=== PATIENT | female | born 1940 | race Caucasian/White ===

== ENCOUNTER 2018-07-01 10:29 | Outpatient (CLI) | payer MEDICARE, BC ==
--- NOTE | 2018-07-01 14:12 | MRI ---
MRI LUMBAR SPINE WITHOUT CONTRAST: Date: 07/01/18 INDICATION: Low back pain and instability. FINDINGS: There is slight dextroscoliosis of the lumbar spine. Visualized retroperitoneum and paravertebral soft tissues are unremarkable appearing. Conus is seen t o terminate at approximately the L2 level. There is partial lumbarization of S1. There is slight Grade I anterolisthesis of L5 on S1 with mild retrolisthesis of L1 on L2. At S1-S2, there is no appreciable central canal or neural foraminal narrowing. At L5-S1, there is severe facet joint degenerative change, Grade I anterolisthesis, broad based disc bulge, and facet hypertrophy inducing severe central canal narrowing with mild bilateral neural lynette inal narrowing. At L4-5, there is a broad based bulge with facet hypertrophy inducing mild central canal narrowing an d mild bilateral neural foraminal narrowing, right greater than left. At L3-4, there is a broad based bulge, asymmetric to the right, with facet hypertrophy inducing mild right neural foraminal narrowing. At L2-3, there is retrolisthesis of L2 on L3. There is facet hypertrophy and ligamentum flavum hypert rophy inducing mild central canal narrowing and mild bilateral neural foraminal narrowing. At L1-L2, there is a broad based disc bulge with facet hypertrophy inducing mild central canal narrow ing. At T12-L1, there is no appreciable central canal or neural foraminal narrowing. IMPRESSION: 1. Multilevel spondylosis of the lumbar spine with severe central canal narrowing seen at L5-S1. 2. Mild central canal narrowing at L4-5, L2-3 and L1-2. 3. Mild neural foraminal narrowing at multiple levels. POS: CET
== END 2018-07-01 10:30 | disposition home or self-care (01) ==
LOC: SCSMRI 10:29
PROVIDERS: ATTEND Neurological Surgery
DX: M51.36 Other intervertebral disc degeneration, lumbar region (principal); M48.061 Spinal stenosis, lumbar region without neurogenic claudication; M48.07 Spinal stenosis, lumbosacral region; M47.817 Spondylosis without myelopathy or radiculopathy, lumbosacral region; M47.816 Spondylosis without myelopathy or radiculopathy, lumbar region
CPT/HCPCS: 72148